=== PATIENT | female | born 1950 | race Caucasian/White ===

== ENCOUNTER → 2017-02-06 | Outpatient (CLI) | payer BC ==
[~2017-02-06] MED LIST: BENTYL20 MG PO; CENTRUM SILVER PO; CLOTRIMAZOLE/BE45 GM TOP; FLAGYL250 M1; LEVAQUIN250 MG PO; MEVACOR PO; PAMELOR25 M1 PO; PLAVIX PO; TRANSDERM-1 PATCH .7 TOP; ZANTAC PO; ZESTORETIC 10/11 TA1 PO; ZESTORETIC 10/11 TAB PO
--- NOTE | ~2017-02-06 | CT113 ---
[facility] A Service of [facility] & [facility] RADIOLOGY TEXT RESULTS PATIENT: MICHELLE VAZQUEZ LOCATION: [facility] : 54 UNIT #: [id number] AGE: [address]: Yogesh Hernandez MD SEX: F ORDER DR: [id number] [address] [id number] [id number] O MR#: [id number] Acc #: [id number] NAME: MICHELLE VAZQUEZ : 1950 SEX: F STUDY DATE/TIME: 02/06/2017 15:00 UNIT: [facility] ROOM: STUDY DESCRIPTION: CT Sinuses Wo Contrast Attending Physician: Yogesh Hernandez M.D. Referring Physician: Yogesh Hernandez M.D. Ordering Physician: Yogesh Hernandez M.D. Primary Care Physician: Yogesh Hernandez M.D. MEDICAL IMAGING REPORT This report is preliminary unless electronic signature is present. EXAM CT sinuses HISTORY Sinus drainage and pressure x1 month. Evaluate for chronic sinusitis. FINDINGS Thin section axial images performed through the paranasal sinuses without contrast. Multiplanar reconstructed images reviewed. This CT exam was performed with one or more of the following radiation dose reduction techniques: automatic control, adjustment of mA and/or kV according to patient size, and iterative reconstruction. examination demonstrates a polypoid soft tissue lesion within the right maxillary sinus compatible with a small retention cyst. No significant mucosal thickening. No air-fluid levels to suggest acute sinusitis. Hypoplastic frontal sinuses. The ethmoids sphenoid sinuses unremarkable. Study is slightly motion degraded but still felt to be diagnostic. Nasal turbinates unremarkable. Ostiomeatal complex appears normal. Soft tissues unremarkable. IMPRESSION 1. A small right maxillary sinus mucous retention cyst. 2. Hypoplastic frontal sinuses. 3. No evidence of acute or significant chronic sinusitis. 1. Dictated by... Evangelist Sood M.D. THIS IS AN ELECTRONICALLY VERIFIED REPORT Evangelist Sood M.D. at 02/11/2017 5:18 PM JMS/rnr STS. [facility] A Service of [facility] & [facility] RADIOLOGY TEXT RESULTS PATIENT: MICHELLE VAZQUEZ LOCATION: [facility] : 54 UNIT #: [id number] AGE: [address]: Yogesh Hernandez MD SEX: F ORDER DR: TD: 02/11/2017 16:06 JOB #: [id number] MEDICAL IMAGING REPORT Page 1 of 1
== END | disposition home or self-care (01) ==
LOC: SCT 14:47
DX: J32.9 Chronic sinusitis, unspecified (principal); J34.1 Cyst and mucocele of nose and nasal sinus
CPT/HCPCS: 70486